=== PATIENT | female | born 1990 | race Caucasian/White ===

== ENCOUNTER 2021-02-10 12:50 | Emergency (ER) | payer SELFPAY ==
[~2021-02-10] VITALS: Ht 167 cm; Wt 70.0 kg
[2021-02-10] MEDS ORDERED: OXYTOCIN PRE-MIX DRIP 500 ML IV ONE (13:06)
[2021-02-10] MEDS ORDERED: fentaNYL INJ 100 MCG/2 ML AMP ONE ×2 (13:07→15:39)
[2021-02-10] MEDS ORDERED: OXYTOCIN PRE-MIX DRIP 500 ML IV SCH (13:15)
[2021-02-10] MEDS ORDERED: TRANEXAMIC ACID 100 MG/ML 10 ML INJECTION ONE ×2 (13:17→13:27)
[2021-02-10 13:29] LABS: HEMOGLOBIN 12.8 g/dL (11.5-16.0); MEAN PLATELET VOLUME 13.2 fL (9.0-12.2); WHITE BLOOD COUNT 28.2 10^3/uL (4.3-11.0)
[2021-02-10 13:29] LABS: ABG BASE EXCESS -18.5 MMOL/L (-2.5-2.5); ABG OXYGEN SATURATION 98 % (94-100); ABG PCO2 21 MMHG (35-45); ABG PO2 136 MMHG (79-93)
[2021-02-10 13:31] LABS: ABG PH 7.21 (7.37-7.43); ABG TCO2 8.7 MMOL/L (21.0-31.0)
[2021-02-10 13:32] LABS: ALLENS TEST YES-POS; INSPIRED O2 8; PATIENT TEMP 36.3; VENTILATOR NO
[2021-02-10] MEDS ORDERED: NS (IVPB) 100 ML ONE (13:32)
[2021-02-10 13:46] LABS: URIC ACID 11.4 MG/DL (2.6-7.2)
[2021-02-10 13:51] LABS: CLARITY,URINE CLOUDY; COLOR,URINE RED; GLUCOSE, URINE (UA) 1+ (NEGATIVE); KETONES,URINE 2+ (NEGATIVE); NITRITE,URINE POSITIVE (NEGATIVE); PH,URINE 6.5 (5-9); PROTEIN,URINE 3+ (NEGATIVE)
[2021-02-10 13:53] LABS: POTASSIUM 5.2 MMOL/L (3.6-5.0)
[2021-02-10] MEDS ORDERED: NS IV 1000 ML 1,000 ML ONE (13:53)
[2021-02-10 13:54] LABS: CALCIUM 7.4 MG/DL (8.5-10.1)
[2021-02-10 13:55] LABS: TOTAL PROTEIN 4.1 GM/DL (6.4-8.2)
[2021-02-10 13:56] LABS: AMPHETAMINE SCREEN, URINE POSITIVE (NEGATIVE); BARBITURATE SCREEN URINE NEGATIVE (NEGATIVE); BENZODIAZEPINES SCREEN URINE NEGATIVE (NEGATIVE); CANNABINOID SCREEN, URINE NEGATIVE (NEGATIVE); COCAINE SCREEN URINE NEGATIVE (NEGATIVE); METHADONE STAT NEGATIVE (NEGATIVE); METHAMPHETAMINE SCREEN URINE S POSITIVE (NEGATIVE); OPIATE SCREEN URINE NEGATIVE (NEGATIVE); OXYCODONE STAT NEGATIVE (NEGATIVE); PROPOXYPHENE STAT NEGATIVE (NEGATIVE); TRICYCLIC ANTIDEPRESSANTS SCRE NEGATIVE (NEGATIVE)
[2021-02-10 13:58] LABS: INR 1.9 (0.8-1.4); PROTHROMBIN TIME PATIENT 22.5 SEC (12.2-14.7)
[2021-02-10 13:59] LABS: CREATININE SERUM 2.65 MG/DL (0.60-1.30)
[2021-02-10] MEDS: LACTATED RINGERS 1,000 ML IV SCH ×2 (14:00→20:57)
[2021-02-10] MEDS ORDERED: DEXTROSE 50% 50 ML (IMS) SYR ONE (14:03)
[2021-02-10 14:04] LABS: BILIRUBIN,DIRECT 4.9 MG/DL (0.0-0.3); BILIRUBIN,INDIRECT 1.1 MG/DL
[2021-02-10 14:10] LABS: BILIRUBIN,URINE 1+ (NEGATIVE)
[2021-02-10 14:12] LABS: BACTERIA,URINE FEW /HPF; LEUKOCYTE ESTERASE ,URINE 3+ (NEGATIVE); RBC,URINE TNTC /HPF
--- NOTE | 2021-02-10 14:14 | ED GU-Female ---
General Chief Complaint: Female Reproductive Stated Complaint: VAGINAL Source: patient Exam Limitations: no limitations History of Present Illness Date Seen by Provider: Feb 10, 2021 Time Seen by Provider: 12:54 Initial Comments Patient to the ER by EMS from [facility] with chief complaint of copious vaginal bleeding, spontaneous precipitous delivery approximately 1 hour prior to their call going out. Patient denies passing out to stating that she felt like she had to urinate and then passed her fluids. She then delivered in the seat of the truck lying to one of her friends. They were out at [facility] together. Her friends were out at the [place] and not near her. She then phoned EMS. EMS states the was not breathing and pulseless and dusky colored on the floor of the truck and the patient relates that it had been there for about an hour prior to their arrival. Umbilical cord was intact and placenta was delivered. Patient denies being sick having any fevers cough chills nausea vomiting diarrhea. She denies a history of preeclampsia swelling in her hands or feet, elevated blood pressure. She denies drinking or using any recreational drugs. EMS reports that her blood pressure was low 70/40 and they had initiated an IV and IV fluids. Her mother called and related that she was tested positive for Covid 5 days ago. Allergies and Home Medications Allergies Coded Allergies: No Known Drug Allergies (Unverified , 02/10/21) Patient Home Medication List Home Medication List Reviewed: Yes Review of Systems Review of Systems Constitutional: No chills, No fever, No malaise EENTM: No ear discharge, No ear pain Respiratory: No cough, No phlegm, No short of breath Cardiovascular: No chest pain, No edema Gastrointestinal: abdominal pain; No constipation, No diarrhea, No nausea, No vomiting Genitourinary: denies burning, denies discharge Musculoskeletal: No back pain, No joint pain Skin: No pruritus, No rash Psychiatric/Neurological: Denies Anxiety, Denies Depressed Hematologic/Lymphatic: Denies Anemia, Denies Blood Clots, Denies Easy Bleeding, Denies Easy Bruising All Other Systemes Reviewed Negative Unless Noted: Yes Past Slavvgr-Kadvcr-[place]klwyz Hx Patient Social History Tobacco Use?: Yes Use of E-Cig and/or Vaping dev: No Substance use?: Yes Substance type: Methamphetamine Alcohol Use?: No Physical Exam Vital Signs Vital Signs - First Documented 02/10/21 16:55 Pulse 99 B/P (MAP) 85/43 Capillary Refill : Height, Weight, BMI Height: '" Weight: lbs. oz. kg; BMI Method: General Appearance: severe distress, obese HEENT: PERRL/EOMI (4mm cecelia), pharynx normal Neck: full range of motion, supple, normal inspection Cardiovascular: normal peripheral pulses, regular rate, rhythm Respiratory: lungs clear, normal breath sounds, no respiratory distress, no accessory muscle use Gastrointestinal: normal bowel sounds, non tender, soft Genital/Rectal: other (2 cm superficial linear laceration and periurethral at 12:00 from blunt trauma. No other intravaginal lacerations seen. Lochia present. Boggy uterus initially at the level of the umbilicus.) Extremities: normal range of motion, non-tender, normal capillary refill Neurologic/Psychiatric: no motor/sensory deficits, alert, normal mood/affect, oriented x 3 Skin: normal color, warm/dry Focused Exam Sepsis Stage: Septic Shock Possible Source: Genitouriary Lactate Level 02/10/21 14:26: Lactic Acid Level 8.92*H 02/10/21 16:33: Lactic Acid Level 6.10*H Time of Focused Exam: 19:13 Respiratory: Lungs Clear, Normal Breath Sounds, No Accessory Muscle Use, Respiratory Distress (mild with oxygen saturation 93% on room air, 20 breaths/min, refuses to wear oxygen) Cardiovascular: Regular Rate, Rhythm, Normal Peripheral Pulses Capillary Refill: Less Than 3 Seconds Peripheral Pulses: 2+ Dorsalis Pedis (R), 2+ Left Dors-Pedis (L) Skin: normal color, warm/dry Lactic Acid Level Laboratory Tests Test 02/10/21 16:33 Lactic Acid Level 6.10 MMOL/L (0.50-2.00) *H Within 3hrs of presentation: Admin fluids, Admin ABX, Blood cultures prior to ABX's, Focus exam, Lactate level, Vasopressin therapy Procedures/Interventions Lumen: triple (7 Niger[place] 20 cm) Central Line Procedure: betadine prep (Chlorhexidine), sterile drapes applied, sterile dressing applied Position: internal jugular (R) Anesthesia: Lidocaine Volume Anesthetic (ccs): 3 Complications: none Post Position: sutured, good blood return, position confirmed w/ CXR Risks, benefits and alternatives were discussed with the patient and the patient consented to the procedure. The patient was positioned in the usual format and using the usual sterile garments and drapes the patient was dressed out. The skin was thoroughly cleaned with the supplied chlorhexidine prep. After the prep had dried a sterile drape was placed. The 20 cm 7 Nigerien triple-lumen catheter was flushed with sterile saline. We used ultrasound guidance to pass the introducer needle into the right internal jugular without difficulty. A guidewire was placed easily without difficulty. No ectopy was seen on the monitor. The supplied 11 blade scalpel was used to make a 2 mm incision at the inferior portion of the introducer needle. The introducer needle was replaced with the dilator. The dilator was taken out and the patient had the central lumen of the triple lumen catheter threaded over the guidewire and placed at 14 cm. The guidewire was removed and the triple-lumen catheter was stitched in place using the supplied braided stitch at 2 different points. The catheter withdrew blood and flushed easily. A sterile dressing was placed over the catheter. The patient tolerated the procedure well. A chest x-ray was obtained that demonstrated no pneumothorax and a new interval central catheter over the shadow of the right internal jugular down the superior vena cava and terminating just proximal to the right atria. Progress/Results/Core Measures Suspected Sepsis SIRS Temperature: Pulse: Respiratory Rate: Laboratory Tests 02/10/21 13:20: White Blood Count 28.2H 02/10/21 18:04: White Blood Count 35.0*H Blood Pressure / Mean: 02/10/21 14:26: Lactic Acid Level 8.92*H 02/10/21 16:33: Lactic Acid Level 6.10*H Laboratory Tests 02/10/21 13:20: Creatinine 2.65H, INR Comment 1.9H, Platelet Count 210, Total Bilirubin 6.0H 02/10/21 18:04: Platelet Count 180 Results/Orders Lab Results Laboratory Tests Test 02/10/21 13:18 02/10/21 13:20 02/10/21 13:30 02/10/21 14:26 Range/Units Blood Gas Puncture Site RIGHT RADIAL Blood Gas Patient Temperature 36.3 Arterial Blood pH 7.21 *L 7.37-7.43 Arterial Blood Partial Pressure CO2 21 L 35-45 MMHG Arterial Blood Partial Pressure O2 136 H 79-93 MMHG Arterial Blood HCO3 8 *L 23-27 MMOL/L Arterial Blood Total CO2 8.7 *L 21.0-31.0 MMOL/L Arterial Blood Oxygen Saturation 98 94-100 % Arterial Blood Base Excess -18.5 L -2.5-2.5 MMOL/L Epi Test YES-POS Blood Gas Ventilator Setting NO Blood Gas Inspired Oxygen 8 White Blood Count 28.2 H 4.3-11.0 10^3/uL Red Blood Count 4.82 3.80-5.11 10^6/uL Hemoglobin 12.8 11.5-16.0 g/dL Hematocrit 44 35-52 % Mean Corpuscular Volume 91 80-99 fL Mean Corpuscular Hemoglobin 27 25-34 pg Mean Corpuscular Hemoglobin Concent 29 L 32-36 g/dL Red Cell Distribution Width 15.4 H 10.0-14.5 % Platelet Count 210 130-400 10^3/uL Mean Platelet Volume 13.2 H 9.0-12.2 fL Percent Immature Platelet Fraction 21.4 H 0.0-7.6 % Prothrombin Time 22.5 H 12.2-14.7 SEC INR Comment 1.9 H 0.8-1.4 Activated Partial Thromboplast Time 57 H 24-35 SEC Fibrinogen 84 L 221-496 MG/DL D-Dimer 8.96 H 0.00-0.49 UG/ML Sodium Level 122 *L 135-145 MMOL/L Potassium Level 5.2 H 3.6-5.0 MMOL/L Chloride Level 96 L 98-107 MMOL/L Carbon Dioxide Level 6 *L 21-32 MMOL/L Anion Gap 20 H 5-14 MMOL/L Blood Urea Nitrogen 22 H 7-18 MG/DL Creatinine 2.65 H 0.60-1.30 MG/DL Estimat Glomerular Filtration Rate 21 BUN/Creatinine Ratio 8 Glucose Level 50 *L 70-105 MG/DL Uric Acid 11.4 H 2.6-7.2 MG/DL Calcium Level 7.4 L 8.5-10.1 MG/DL Corrected Calcium 9.0 8.5-10.1 MG/DL Total Bilirubin 6.0 H 0.1-1.0 MG/DL Direct Bilirubin 4.9 H 0.0-0.3 MG/DL Indirect Bilirubin 1.1 MG/DL Aspartate Amino Transf (AST/SGOT) 134 H 5-34 U/L Alanine Aminotransferase (ALT/SGPT) 58 H 0-55 U/L Alkaline Phosphatase 404 H 40-136 U/L Lactate Dehydrogenase 741 H 125-220 U/L Total Protein 4.1 L 6.4-8.2 GM/DL Albumin 2.0 L 3.2-4.5 GM/DL Serum Alcohol < 10 <10 MG/DL Urine Color RED H Urine Clarity CLOUDY Urine pH 6.5 5-9 Urine Specific [place] 1.015 L 1.016-1.022 Urine Protein 199 H 6-12 MG/DL Urine Glucose (UA) 1+ H NEGATIVE Urine Ketones 2+ H NEGATIVE Urine Nitrite POSITIVE H NEGATIVE Urine Bilirubin 1+ H NEGATIVE Urine Urobilinogen >=8.0 < = 1.0 MG/DL Urine Leukocyte Esterase 3+ H NEGATIVE Urine RBC (Auto) 3+ H NEGATIVE Urine RBC TNTC H /HPF Urine WBC 5-10 H /HPF Urine Squamous Epithelial Cells 2-5 /HPF Urine Crystals NONE /LPF Urine Bacteria FEW H /HPF Urine Casts NONE /LPF Urine Mucus NEGATIVE /LPF Urine Culture Indicated YES Urine Creatinine 172 H 30-125 MG/DL Urine Protein/Creatinine Ratio 1.16 Urine Opiates Screen NEGATIVE NEGATIVE Urine Oxycodone Screen NEGATIVE NEGATIVE Urine Methadone Screen NEGATIVE NEGATIVE Urine Propoxyphene Screen NEGATIVE NEGATIVE Urine Barbiturates Screen NEGATIVE NEGATIVE Ur Tricyclic Antidepressants Screen NEGATIVE NEGATIVE Urine Phencyclidine Screen NEGATIVE NEGATIVE Urine Amphetamines Screen POSITIVE H NEGATIVE Urine Methamphetamines Screen POSITIVE H NEGATIVE Urine Benzodiazepines Screen NEGATIVE NEGATIVE Urine Cocaine Screen NEGATIVE NEGATIVE Urine Cannabinoids Screen NEGATIVE NEGATIVE Lactic Acid Level 8.92 *H 0.50-2.00 MMOL/L Test 02/10/21 15:08 02/10/21 16:33 02/10/21 18:04 02/10/21 18:37 Range/Units Glucometer 113 H 70-110 MG/DL Lactic Acid Level 6.10 *H 0.50-2.00 MMOL/L White Blood Count 35.0 *H 4.3-11.0 10^3/uL Red Blood Count 4.84 3.80-5.11 10^6/uL Hemoglobin 13.2 11.5-16.0 g/dL Hematocrit 42 35-52 % Mean Corpuscular Volume 86 80-99 fL Mean Corpuscular Hemoglobin 27 25-34 pg Mean Corpuscular Hemoglobin Concent 32 32-36 g/dL Red Cell Distribution Width 15.3 H 10.0-14.5 % Platelet Count 180 130-400 10^3/uL Mean Platelet Volume 12.9 H 9.0-12.2 fL Immature Granulocyte % (Auto) 7 % Neutrophils (%) (Auto) 72 42-75 % Lymphocytes (%) (Auto) 10 L 12-44 % Monocytes (%) (Auto) 5 0-12 % Eosinophils (%) (Auto) 5 0-10 % Basophils (%) (Auto) 1 0-10 % Neutrophils # (Auto) 25.2 H 1.8-7.8 10^3/uL Lymphocytes # (Auto) 3.5 1.0-4.0 10^3/uL Monocytes # (Auto) 1.8 H 0.0-1.0 10^3/uL Eosinophils # (Auto) 1.9 H 0.0-0.3 10^3/uL Basophils # (Auto) 0.2 H 0.0-0.1 10^3/uL Immature Granulocyte # (Auto) 2.4 H 0.0-0.1 10^3/uL Neutrophils % (Manual) 72 % Lymphocytes % (Manual) 9 % Monocytes % (Manual) 6 % Eosinophils % (Manual) 0 % Basophils % (Manual) 0 % Band Neutrophils 13 % Nucleated Red Blood Cells 2 Percent Immature Platelet Fraction 19.1 H 0.0-7.6 % Anisocytosis SLIGHT Blood Gas Puncture Site RIGHT RADIAL Blood Gas Patient Temperature 95.0 Arterial Blood pH 7.31 *L 7.37-7.43 Arterial Blood Partial Pressure CO2 24 L 35-45 MMHG Arterial Blood Partial Pressure O2 75 L 79-93 MMHG Arterial Blood HCO3 12 *L 23-27 MMOL/L Arterial Blood Total CO2 12.6 L 21.0-31.0 MMOL/L Arterial Blood Oxygen Saturation 94 94-100 % Arterial Blood Base Excess -13.7 L -2.5-2.5 MMOL/L Epi Test YES-POS Blood Gas Ventilator Setting NO Blood Gas Inspired Oxygen ROOM AIR My Orders Orders - KAREN GONZALES Oxytocin Pre-Mix Drip (Pitocin Pre-Mix) (02/10/21 13:06) Fentanyl Inj (Sublimaze Injection) (02/10/21 13:07) Uric Acid (02/10/21 13:18) LDH (02/10/21 13:18) Tranexamic Acid Injection (Cyklokapron I (02/10/21 13:17) Tranexamic Acid Injection (Cyklokapron I (02/10/21 13:27) Ns (Ivpb) (Sodium Chloride 0.9% Ivpb Bag (02/10/21 13:32) Comprehensive Metabolic Panel (02/10/21 13:44) Urine [place] Prot Creat W/Ratio (02/10/21 13:50) Liver Panel (02/10/21 13:20) Ns Iv 1000 Ml (Sodium Chloride 0.9%) (02/10/21 13:53) D50w (Emergency) Syringe (Dextrose 50% 5 (02/10/21 14:15) Lactic Acid Analyzer (02/10/21 14:03) D50w (Emergency) Syringe (Dextrose 50% 5 (02/10/21 14:03) Fibrin Degradation Products (02/10/21 14:20) Chest 1 View, Ap/Pa Only (02/10/21 14:20) Magnesium 1 Gm/100 Ml Ivpb (Magnesium [place] (02/10/21 15:31) Magnesium 1 Gm/100 Ml Ivpb (Magnesium [place] (02/10/21 15:45) Fentanyl Inj (Sublimaze Injection) (02/10/21 15:45) Fentanyl Inj (Sublimaze Injection) (02/10/21 15:39) Lorazepam Injection (Ativan Injection) (02/10/21 16:20) Arterial Blood Draw (02/10/21 ) Fentanyl Inj (Sublimaze Injection) (02/10/21 16:45) Lorazepam Injection (Ativan Injection) (02/10/21 16:45) Ns Iv 1000 Ml (Sodium Chloride 0.9%) (02/10/21 16:45) Chest 1 View, Ap/Pa Only (02/10/21 16:31) Norepinephrine 8 Mg/250 Ml (Norepinephri (02/10/21 16:45) Magnesium 1 Gm/100 Ml Ivpb (Magnesium [place] (02/10/21 17:00) Cbc With Automated Diff (02/10/21 17:27) Vancomycin Injection (Vancomycin Injecti (02/10/21 18:15) Cefepime Injection (Maxipime Injection) (02/10/21 18:15) Manual Differential (02/10/21 18:04) Alcohol (02/10/21 18:22) Magnesium 1 Gm/100 Ml Ivpb (Magnesium [place] (02/10/21 18:40) Medications Given in ED Current Medications Medications Dose Ordered Sig/Ricci Route Start Time Stop Time Status Last Admin Dose Admin Dextrose 50 ml ONCE ONCE IV 02/10/21 14:15 02/10/21 14:16 DC 02/10/21 14:02 50 ML Fentanyl Citrate 50 mcg ONCE ONCE IVP 02/10/21 15:45 02/10/21 15:46 DC 02/10/21 15:42 50 MCG Fentanyl Citrate 50 mcg ONCE ONCE IVP 02/10/21 16:45 02/10/21 16:46 DC 02/10/21 13:50 50 MCG Fentanyl Citrate 100 mcg STK-MED ONCE .ROUTE 02/10/21 15:39 02/10/21 15:41 DC 02/10/21 16:24 50 MCG Lorazepam 2 mg STK-MED ONCE .ROUTE 02/10/21 16:20 02/10/21 16:23 DC 02/10/21 16:23 2 MG Oxytocin/Sodium Chloride 500 ml @ ud STK-MED ONCE IV 02/10/21 13:06 02/10/21 13:08 DC 02/10/21 13:26 500 MLS/HR Sodium Chloride 100 ml @ ud STK-MED ONCE .ROUTE 02/10/21 13:32 02/10/21 13:35 DC 02/10/21 13:27 24 MLS/HR Sodium Chloride 1,000 ml @ ud STK-MED ONCE .ROUTE 02/10/21 13:53 02/10/21 13:56 DC 02/10/21 17:25 250 MLS/HR Tranexamic Acid 1,000 mg STK-MED ONCE .ROUTE 02/10/21 13:17 02/10/21 13:20 DC 02/10/21 13:27 1,000 MG Tranexamic Acid 1,000 mg STK-MED ONCE .ROUTE 02/10/21 13:27 02/10/21 13:29 DC 02/10/21 13:17 1,000 MG Vital Signs/I&O 02/10/21 16:55 Pulse 99 B/P (MAP) 85/43 Capillary Refill : Progress Note #1: Time: 14:38 Progress Note Discussed the case with Dr. Wooten who at this time would declined to admit the patient locally as he is concerned about the patient's elevated bilirubin and LFTs and he says he cannot explain that and would possibly require GI services maybe even the ERCP or other services which are not available locally. He would recommend transfer to a tertiary center. [facility] called for placement Progress Note #2: Time: 15:30 Progress Note Protein creatinine ratio looks consistent with preeclampsia so were going to give her a attenuated dose of 2 g of magnesium followed by 2 g every hour. We will talk to her about establishing a central line next. Progress Note #3: Time: 18:00 Progress Note TXA was discontinued as it may aggravate pending DIC. Repeat labs were ordered including an ABG which demonstrated some improvement of the metabolic acidosis. Repeat CBC with slightly elevated white count and a small drop in platelets noted. Norepinephrine was initiated and reduced down to 2.03 mcg/kg/min which has held her blood pressure around 100-110 systolic. We will continue to titrate as necessary. Patient's not requiring any oxygen at this time. Patient's family was updated, mother was called by phone and updated. Discussed the case with Dr. Thompson and he states we have gotten enough Pitocin and so we stopped the Pitocin drip. He recommends if she continues to have bleeding we would use Methergine, fundal massage and/or Pitocin as necessary. Patient's uterus is still firm with no blood expressed on fundal massage. Patient's questions and concerns were answered. Care of the patient was transferred to Dr. Hood. Dr. Hood made attempts to contact several local hospitals unsuccessfully finding a bed. [place] states they have contacted th e 183 different hospitals from [place] to [place] and will start broadening their search as we have not located in appropriate facility for her yet. Diagnostic Imaging Diagonstic Imaging: Xray Plain Films/CT/US/NM/MRI: chest Comments [facility]. [place], [place] NAME: CAMDEN MOODY Blanka [facility] REC#: [id number] PT STATUS: REG ER : 1990 PHYSICIAN: KAREN GONZALES MD ADMIT DATE: 02/10/21/ER Signed Date of Exam:02/10/21 CHEST 1 VIEW, AP/PA ONLY INDICATION: Shortness of breath. TIME OF EXAM: 2:44 PM No prior studies are available for comparison. The heart size is normal. The pulmonary vascularity is unremarkable. The lungs are clear. No infiltrate, effusion or pneumothorax is detected. Impression: No acute cardiopulmonary process is detected. Dictated by: Dictated on workstation # [id number] Dict: 02/10/21 1447 Trans: 02/10/21 1453 CVB [id number] Interpreted by: STEFANIE DAI MD Electronically signed by: STEFANIE DAI MD 02/10/21 1455 Reviewed: Reviewed by Me Consults Consults : Consulting Physician: TON THOMPSON MD Consults Notes We appreciate his assistance and smith presentation to the ER to help manage this patient. He had a appropriate vaginal exam, recommends no interventions for the laceration, Pitocin and magnesium since the urine protein creatinine ratio was greater than 0.3. Transfer of Care Transfer of Care Time: 18:00 Care transferred to: Dr Hood Critical Care Note Critical Care Start Time: 12:54 Stop Time: 14:54 Total Time (minutes) 120 mins Progress I attest that this patient has received greater 120 minutes of critical care time outside of procedures including management of her shock, her consultation with gynecology, her management of preeclampsia, her COVID-19 and her very complicated and acutely ill care. Departure Impression Primary Impression: Precipitous delivery, delivered (current hospitalization) Additional Impressions: ABLA (acute blood loss anemia) Hypoglycemia Methamphetamine use Acute hyponatremia Delirium due to another medical condition, acute, hypoactive Shock Liver injury Qualified Codes: S36.119A - Unspecified injury of liver, initial encounter Kidney injury Qualified Codes: S37.001A - Unspecified injury of right kidney, initial encounter Periurethral tear in female Qualified Codes: S37.33XA - Laceration of urethra, initial encounter Preeclampsia in period COVID-19 Suspect DIC Acquired hyperbilirubinemia Septic shock UTI (urinary tract infection) Qualified Codes: N30.01 - Acute cystitis with hematuria with septic shock Disposition: XFER SHT-TRM HOSP Condition: Critical Transfer Transfer Reason: Exceeds level of care (No GI for Elev Bili) Transfer Progress Notes [facility] working on Transfer Departure-Patient Inst. Referrals: NO,LOCAL PHYSICIAN (PCP/Family) Primary Care Physician KAREN GONZALES Feb 10, 2021 14:14
[2021-02-10] MEDS ORDERED: DEXTROSE 50% 50 ML (IMS) SYR IV ONE (14:15)
--- NOTE | 2021-02-10 14:49 | Diagnostic Imaging Report ---
INDICATION: Shortness of breath. TIME OF EXAM: 2:44 PM No prior studies are available for comparison. The heart size is normal. The pulmonary vascularity is unremarkable. The lungs are clear. No infiltrate, effusion or pneumothorax is detected. Impression: No acute cardiopulmonary process is detected. Dictated by: Dictated on workstation # [id number]
[2021-02-10] MEDS ORDERED: MAGNESIUM 1 GM/100 ML IVPB 100 ML IV STA (15:31)
[2021-02-10] MEDS ORDERED: fentaNYL INJ 100 MCG/2 ML AMP IVP ONE ×2 (15:45→16:45)
[2021-02-10] MEDS: MAGNESIUM 1 GM/100 ML IVPB 100 ML IV SCH ×6 (16:20→20:50)
[2021-02-10] MEDS ORDERED: LORazepam INJ 2 MG/ML (ATIVAN) VIAL ONE (16:20)
[2021-02-10] MEDS ORDERED: NOREPINEPHRINE 8 MG/250 ML 250 ML IV SCH (16:45)
[2021-02-10] MEDS ORDERED: LORazepam INJ 2 MG/ML (ATIVAN) VIAL IVP ONE (16:45)
--- NOTE | 2021-02-10 17:04 | Diagnostic Imaging Report ---
INDICATION: Pulmonary infiltrates. TIME OF EXAM: 4:45 PM. COMPARISON: Correlation is made with study of earlier the same day. There is some density in the periphery of the left lung in the mid and lower aspects suspicious for infiltrate. The right lung is clear. There is no effusion or pneumothorax. Right-sided line has tip overlying the SVC. IMPRESSION: There are some peripheral based opacities in the left mid and lower lung field suspicious for pulmonary infiltrates. Dictated by: Dictated on workstation # [id number]
[2021-02-10] MEDS ORDERED: VANCOMYCIN INJECTION 1,000 MG in NS (IVPB) 250 ML IV ONE (18:15)
[2021-02-10] MEDS ORDERED: CEFEPIME INJECTION 1,000 MG in WATER (STERILE) FOR INJECTION 10 ML IV ONE ×2 (18:15→20:45)
[2021-02-10 18:17] LABS: BASOPHILS # (AUTO) 0.2 10^3/uL (0.0-0.1); BASOPHILS % (AUTO) 1 % (0-10); HEMOGLOBIN 13.2 g/dL (11.5-16.0); MEAN PLATELET VOLUME 12.9 fL (9.0-12.2)
[2021-02-10 18:19] LABS: EOSINOPHILS # (AUTO) 1.9 10^3/uL (0.0-0.3); EOSINOPHILS % (AUTO) 5 % (0-10); HEMATOCRIT 42 % (35-52); LYMPHOCYTES # (AUTO) 3.5 10^3/uL (1.0-4.0); LYMPHOCYTES % (AUTO) 10 % (12-44); MEAN CORPUSCULAR HEMOGLOBIN 27 pg (25-34); MEAN CORPUSCULAR HGB CONC 32 g/dL (32-36); MEAN CORPUSCULAR VOLUME 86 fL (80-99); MONOCYTES # (AUTO) 1.8 10^3/uL (0.0-1.0); MONOCYTES % (AUTO) 5 % (0-12); NEUTROPHILS # (AUTO) 25.2 10^3/uL (1.8-7.8); NEUTROPHILS % (AUTO) 72 % (42-75); PLATELET COUNT 180 10^3/uL (130-400)
[2021-02-10] MEDS ORDERED: MAGNESIUM 1 GM/100 ML IVPB 500 ML IV ONE (18:40)
[2021-02-10] MEDS ORDERED: MAGNESIUM SULFATE DRIP 500 ML IV SCH ×2 (18:45→22:00)
[2021-02-10 18:52] LABS: ABG BASE EXCESS -13.7 MMOL/L (-2.5-2.5); ABG OXYGEN SATURATION 94 % (94-100); ABG PCO2 24 MMHG (35-45); ABG PO2 75 MMHG (79-93); ABG TCO2 12.6 MMOL/L (21.0-31.0)
[2021-02-10 18:53] LABS: ABG PH 7.31 (7.37-7.43); ALLENS TEST YES-POS
[2021-02-10 18:53] LABS: ANISOCYTOSIS SLIGHT; BAND NEUTROPHILS 13 %; BASOPHILS % (MANUAL) 0 %; EOSINOPHILS % (MANUAL) 0 %; LYMPHOCYTES % (MANUAL) 9 %; MONOCYTES % (MANUAL) 6 %; NEUTROPHILS % (MANUAL) 72 %; NUCLEATED RED BLOOD CELLS 2
[2021-02-10 18:54] LABS: INSPIRED O2 ROOM AIR; VENTILATOR NO
[2021-02-10] MEDS ORDERED: LACTATED RINGERS 1,000 ML IV ONE ×3 (19:00→21:15)
[2021-02-10] MEDS: NS IV 1000 ML 1,000 ML IV SCH ×2 (19:02→21:02)
[2021-02-10 19:17] LABS: INR 1.9 (0.8-1.4); PROTHROMBIN TIME PATIENT 22.2 SEC (12.2-14.7)
[2021-02-10 19:26] LABS: ALBUMIN 1.8 GM/DL (3.2-4.5); BILIRUBIN,TOTAL 6.5 MG/DL (0.1-1.0); CALCIUM 6.8 MG/DL (8.5-10.1); CREATININE SERUM 2.17 MG/DL (0.60-1.30); MAGNESIUM 3.7 MG/DL (1.6-2.4); TOTAL PROTEIN 3.7 GM/DL (6.4-8.2)
[2021-02-10] MEDS ORDERED: MAGNESIUM 1 GM/100 ML IVPB 100 ML IV ONE ×2 (19:30→21:45)
--- NOTE | 2021-02-10 20:03 | Diagnostic Imaging Report ---
PROCEDURE: CT head w/o r/o stroke. TECHNIQUE: Multiple contiguous axial images were obtained through the brain without the use of intravenous contrast. Auto Exposure Controls were utilized during the CT exam to meet ALARA standards for radiation dose reduction. INDICATION: Neurological deficit. COMPARISON: None. FINDINGS: The ventricles and cortical sulci are age-appropriate. There is no midline shift or mass effect. No acute intracranial hemorrhage is seen. There is no CT evidence of acute territorial ischemia. The calvarium appears intact. Visualized paranasal sinuses demonstrate mild mucosal thickening and fluid in the ethmoids and sphenoids, but are otherwise clear. IMPRESSION: No acute intracranial hemorrhage or CT evidence of acute territorial ischemia. Dictated by: Dictated on workstation # [id number]
--- NOTE | 2021-02-10 20:10 | Diagnostic Imaging Report ---
PROCEDURE: CT chest, abdomen, and pelvis without contrast. TECHNIQUE: Multiple contiguous axial images were obtained through the chest, abdomen, and pelvis without the use of intravenous contrast. Auto Exposure Controls were utilized during the CT exam to meet ALARA standards for radiation dose reduction. INDICATION: Elevated liver enzymes. . Leukocytosis. COMPARISON: None. FINDINGS: There is motion artifact during the exam and the patient's arms are adducted. CT CHEST: The heart is normal in size. There is minimal pericardial fluid without espinoza effusion seen. No mediastinal adenopathy is seen although there is significant motion artifact. There are airspace opacities in the lung bases, bilaterally, particularly the lateral left lung, concerning for infection, including Covid. There is no pleural effusion or pneumothorax. The right central line is noted in the SVC. No acute osseous abnormality is seen. CT ABDOMEN AND PELVIS: The liver appears somewhat low in density, may be due to hepatic steatosis. No focal liver lesion is seen. The spleen appears normal. The pancreas, adrenal glands and kidneys are unremarkable on this noncontrast exam. There is marked stool in the proximal colon, concerning for constipation. The uterus is very large, consistent with status. A Min catheter is seen in the bladder. There is hyperdensity in the region of the cervix and vaginal canal, may represent blood products. IMPRESSION: 1. Airspace and groundglass opacities in the lungs, concerning for infection. 2. Marked stool in the proximal colon, concerning for constipation. 3. Hepatic steatosis. 4. Large uterus with hyperdensity in the region of the cervix and vaginal canal which may represent blood products. 5. Marked motion artifact throughout the exam. Dictated by: Dictated on workstation # [id number]
[2021-02-10] MEDS ORDERED: CEFEPIME INJECTION 2,000 MG in WATER (STERILE) FOR INJECTION 20 ML IV ONE (20:45)
[2021-02-10] MEDS ORDERED: MAGNESIUM SULFATE DRIP 500 ML IV ONE (21:50)
[2021-02-10 23:42] VITALS: BP 115/76
[2021-02-12 14:13] LABS: HEPATITIS C ANTIBODY C Non-Reactive (Non-Reactive)
== END 2021-02-10 23:42 | disposition short-term general hospital (02) ==
LOC: EDUNIT# 12:56 → ER 12:58
DX: S37.33XA Laceration of urethra, initial encounter (principal); S36.119A Unspecified injury of liver, initial encounter; S37.009A Unspecified injury of unspecified kidney, initial encounter; O15.2 Eclampsia complicating the puerperium; U07.1 COVID-19; D62 Acute posthemorrhagic anemia; F15.90 Other stimulant use, unspecified, uncomplicated; E87.1 Hypo-osmolality and hyponatremia; F05 Delirium due to known physiological condition; E80.6 Other disorders of bilirubin metabolism; R65.21 Severe sepsis with septic shock; N39.0 Urinary tract infection, site not specified; E66.9 Obesity, unspecified; X58.XXXA Exposure to other specified factors, initial encounter
CPT/HCPCS: 36556; 36600; 51702; 70450; 71045; 71250; 74176; 80053; 80074; 80306; 81000; 82150; 82248; 82570; 82805; 82947; 83605; 83615; 83690; 83735; 84145; 84156; 84550; 85007; 85027; 85379; 85384; 85610; 85730; 86703; 86850; 86900; 86901; 86920; 87040; 87088; 87636; 93005; 99285; G0480; P9016; 36415; 80076; 80320; 96365; 96366; 96367; 96368; 96375; 96376